=== PATIENT | male | born 1980 | race Two or more races ===

== ENCOUNTER → 2024-01-17 | Emergency (ER) | payer OTHER ==
[~2024-01-17] VITALS: Ht 175.3 cm; Wt 123.0 kg
[2024-01-17 18:23] VITALS: BP 137/83; PULSE 115; RESP 18; TEMP 97.8; O2SAT 95
[2024-01-17] MEDS: SODIUM CHLORIDE 0.9% 500 ML IV ONE (18:30)
[2024-01-17 19:17] LABS: Base Excess -0.5 mmol/L (-2.0-2.0)
[2024-01-17 19:29] LABS: Basophils # (auto) 0 10 ^3/uL (0-0.2); Basophils % (auto) 0.3 % (0.0-2.0); Eosinophils # (auto) 0.1 10 ^3/uL (0-0.8); Eosinophils % (auto) 0.4 % (0.0-7.0); Hematocrit 51.2 % (41.0-53.0); Hemoglobin 17.5 g/dL (13.5-17.5); Lymphocytes # (auto) 2.2 10 ^3/uL (0.4-5.4); Lymphocytes % (auto) 14.2 % (10.0-50.0); Mean Corpuscular Hemoglobin 29.7 pg (28.0-32.0); Mean Corpuscular Hgb Conc. 34.2 g/dL (32.0-36.0); Mean Corpuscular Volume 86.8 fL (80.0-100.0); Monocytes # (auto) 0.9 10 ^3/uL (0-1.3); Monocytes % (auto) 5.7 % (0.0-12.0); Neutrophils # (auto) 12.4 10 ^3/uL (1.6-8.6); Neutrophils % (auto) 79.4 % (37.0-80.0); Nucleated Red Blood Cells % 0.1 %; Platelet Count (auto) 150 10^3/uL (140-450); Red Cell Distribution Width 14.7 % (11.8-14.3); White Blood Cell 15.6 10^3/uL (4.4-10.8)
[2024-01-17 19:33] LABS: Chloride 106 mmol/L (98-107); Potassium 3.7 mmol/L (3.5-5.1); Sodium 140 mmol/L (136-145)
[2024-01-17 19:34] LABS: Anion Gap 6 (5-15); Calcium 9.9 mg/dL (8.7-10.4); Carbon Dioxide 28 mmol/L (20-30)
[2024-01-17 19:39] LABS: BUN/Creatinine Ratio 8.7 (10.0-20.0); Blood Urea Nitrogen 9 mg/dL (9-23); Glucose 106 mg/dL (74-106)
== END | disposition left against medical advice (07) ==
LOC: ER 17:36 → EDBD 17:36
DX: T59.811A Toxic effect of smoke, accidental (unintentional), initial encounter (principal); D72.829 Elevated white blood cell count, unspecified; R55 Syncope and collapse; R51.9 Headache, unspecified; M54.50 Low back pain, unspecified; Y92.9 Unspecified place or not applicable
CPT/HCPCS: 36415; 36600; 80048; 82805; 85025; 96360; 99283; J7040